=== PATIENT | male | born 1945 | race Caucasian/White ===

== ENCOUNTER 2024-07-03 19:42 | Emergency (ER) | payer OTHER, BC ==
[2024-07-03 19:53] VITALS: BP 148/73; PULSE 92; RESP 16; TEMP 98.2; BMI 29.7
[2024-07-03] MEDS ORDERED: DIPHTH,PERTUSS(ACELL),TET 0.5 ML DISP.SYRIN IM ONE (21:31)
[2024-07-03] MEDS ORDERED: CEPHALEXIN MONOHYDRATE 500 MG CAPSULE (UD) ONE (21:31)
[2024-07-03] MEDS: DIPHTH,PERTUSS(ACELL),TET 0.5 ML DISP.SYRIN IM ONE (21:40)
[2024-07-03] MEDS: CEPHALEXIN MONOHYDRATE 500 MG CAPSULE (UD) PO ONE (21:41)
== END 2024-07-03 21:42 | disposition home or self-care (01) ==
LOC: FER 19:42
PROC: 0YQHXZZ Repair Right Lower Leg, External Approach (ICD-10-PCS; principal; 2024-07-03)
PROC: 3E0234Z Introduction of Serum, Toxoid and Vaccine into Muscle, Percutaneous Approach (ICD-10-PCS; 2024-07-03)
DX: S81.811A Laceration without foreign body, right lower leg, initial encounter (principal); W01.198A Fall on same level from slipping, tripping and stumbling with subsequent striking against other object, initial encounter; Z23 Encounter for immunization
CPT/HCPCS: 12002-25; 90471; 90715; 99284-25